=== PATIENT | female | born 2000 | race African-American/Black ===

== ENCOUNTER 2023-08-11 23:11 | Emergency (ER) | payer OTHER ==
[~2023-08-11] VITALS: Ht 167.6 cm; Wt 56.7 kg
[2023-08-12 00:33] VITALS: BP 107/68; TEMP 98.7; O2SAT 100
== END 2023-08-12 02:15 | disposition home or self-care (01) ==
LOC: ER 23:13
DX: M79.671 Pain in right foot (principal)
CPT/HCPCS: 73630-TC